=== PATIENT | male | born 1960 | race Caucasian/White ===

== ENCOUNTER → 2022-07-20 | Day surgery (SDC) | payer BC ==
[~2022-07-20] MED LIST: AMLODIPINE BESYL5 MG PO; ATORVASTATIN CA20 MG PO; FENTANYL CITRATE/PF 100MCG/2 ML INJ ONE; HYOSCYAMINE SULFATE 0.5 MG/ML INJ ONE; LEVOTHYROXINE75 MCG PO; LIDOCAINE HCL 2% LOCAL INJ 5 ML SDV VIAL INJ ONE; LOSARTAN POTAS100 MG PO; PROPOFOL IV EMULSION 10 MG/ML 20 ML VIAL ONE; PROPOFOL IV EMULSION 50 ML IV ONE; TIZANIDINE HCL4 MG PO; TRAZODONE HCL50 MG PO; TRICOR145 MG PO
[2022-07-20 14:45] VITALS: BP 123/79
== END | disposition home or self-care (01) ==
LOC: OR 10:59
PROVIDERS: ATTEND Internal Medicine Gastroenterology
DX: Z09 Encounter for follow-up examination after completed treatment for conditions other than malignant neoplasm (principal); D12.5 Benign neoplasm of sigmoid colon; K62.1 Rectal polyp; K57.30 Diverticulosis of large intestine without perforation or abscess without bleeding; K64.8 Other hemorrhoids; Z71.3 Dietary counseling and surveillance; R16.0 Hepatomegaly, not elsewhere classified; I10 Essential (primary) hypertension; Z71.89 Other specified counseling; E78.00 Pure hypercholesterolemia, unspecified; E03.9 Hypothyroidism, unspecified; R06.83 Snoring; Z01.810 Encounter for preprocedural cardiovascular examination; Z79.899 Other long term (current) drug therapy; Z68.36 Body mass index [BMI] 36.0-36.9, adult
CPT/HCPCS: 45385; 93005; J1980; J2001; J2704 ×2; J3010

== ENCOUNTER → 2022-07-27 | Outpatient (CLI) | payer BC ==
[~2022-07-27] MED LIST changes: -FENTANYL CITRATE/PF 100MCG/2 ML INJ ONE; -HYOSCYAMINE SULFATE 0.5 MG/ML INJ ONE; -LIDOCAINE HCL 2% LOCAL INJ 5 ML SDV VIAL INJ ONE; -PROPOFOL IV EMULSION 10 MG/ML 20 ML VIAL ONE; -PROPOFOL IV EMULSION 50 ML IV ONE
== END ==
LOC: US 07:48
PROVIDERS: ATTEND Nurse Practitioner
DX: I10 Essential (primary) hypertension (principal); R16.0 Hepatomegaly, not elsewhere classified
CPT/HCPCS: 76700